=== PATIENT | male | born 1980 | race Caucasian/White ===

== ENCOUNTER 2018-03-12 17:50 | Emergency (ER) | payer BC, OTHER ==
[2018-03-12 18:21] VITALS: BP 121/79
--- NOTE | 2018-03-12 18:44 | UC ---
UC General HPI - HPI Summary HPI Summary: 2 day hx of sudden headache, body aches, mild congestion and nausea. - History of Current Complaint Chief Complaint: UCRespiratory Stated Complaint: NAUSEA,RODRÍGUEZ,CHILLS Time Seen by Provider: 03/12/18 18:27 Hx Obtained From: Patient Timing: Constant Pain Intensity: 8 Associated Signs & Symptoms: Positive: Fever - subjective, Headache, Nausea. Negative: Chest Pain, Dizziness, SOB, Vomiting, Wheezing, Weakness - Allergy/Home Medications Allergies/Adverse Reactions: Allergies Allergy/AdvReac Type Severity Reaction Status Date / Time No Known Allergies Allergy Verified 03/12/18 18:11 Home Medications: Home Medications Acetaminophen [Acetaminophen Extra Strength] 1,000 mg PO DAILY PRN 03/12/18 [ History Confirmed 03/12/18] Omeprazole 20 mg PO DAILY 03/12/18 [History Confirmed 03/12/18] PMH/Surg Hx/FS Hx/Imm Hx GI/ History: Gastroesophageal Reflux - Surgical History Surgical History: None - Social History Alcohol Use: Weekly Alcohol Amount: 6-12 Substance Use Type: Excessive Caffeine Smoking Status (MU): Former Smoker Review of Systems All Other Systems Reviewed And Are Negative: Yes Constitutional: Positive: Fever, Chills Skin: Positive: Negative Eyes: Positive: Negative ENT: Positive: Sinus Congestion Respiratory: Positive: Negative Cardiovascular: Positive: Negative Gastrointestinal: Positive: Negative Genitourinary: Positive: Negative Motor: Positive: Negative Neurovascular: Positive: Negative Musculoskeletal: Positive: Myalgia Neurological: Positive: Headache Psychological: Positive: Negative Is Patient Immunocompromised?: No Physical Exam Triage Information Reviewed: Yes Appearance: Ill-Appearing - but non toxic Vital Signs: Initial Vital Signs Temp 98.4 F 03/12/18 18:15 Pulse 87 03/12/18 18:15 Resp 18 03/12/18 18:15 BP 121/79 03/12/18 18:15 Pulse Ox 97 03/12/18 18:15 Vital Signs Reviewed: Yes Eyes: Positive: Conjunctiva Clear ENT: Positive: Pharynx normal, Nasal congestion, TMs normal. Negative: Nasal drainage Neck: Positive: Supple, Nontender, No Lymphadenopathy. Negative: Nuchal Rigidity Respiratory: Positive: Lungs clear, Normal breath sounds, No respiratory distress Cardiovascular: Positive: RRR, No Murmur Abdomen Description: Positive: Nontender, No Organomegaly, Soft. Negative: Distended, Guarding Bowel Sounds: Positive: Present Musculoskeletal: Positive: ROM Intact Neurological: Positive: Alert Psychological: Positive: Age Appropriate Behavior Skin Exam: Normal Diagnostics - Laboratory Diagnostic Studies Completed/Ordered: influenza A positive Course/Dx - Differential Dx - Multi-Symptom Differential Diagnoses: Other - iral syndrom/flu/uri/bronchitis/pneumonia - Diagnoses Provider Diagnosis: Influenza A Discharge - Sign-Out/Discharge Documenting (check all that apply): Patient Departure All imaging exams completed and their final reports reviewed: No Studies - Discharge Plan Condition: Stable Disposition: HOME Patient Education Materials: Influenza (ED) Forms: *Work Release Referrals: No Primary Care Phys,NOPCP [Primary Care Provider] - Additional Instructions: FOLLOW UP WITH YOUR PRIMARY CARE IN [facility] IN 7 DAYS OR SOONER IF WORSE - Billing Disposition and Condition Condition: STABLE Disposition: Home
== END 2018-03-12 19:10 | disposition home or self-care (01) ==
LOC: UCCORT 17:50
DX: J09.X2 Influenza due to identified novel influenza A virus with other respiratory manifestations (principal); K21.9 Gastro-esophageal reflux disease without esophagitis; Z87.891 Personal history of nicotine dependence
CPT/HCPCS: 99201; G0463